=== PATIENT | male | born 1985 | race Two or more races ===

== ENCOUNTER 2025-04-10 07:48 | Emergency (ER) | payer OTHER ==
[~2025-04-10] VITALS: Ht 160 cm; Wt 83.9 kg
[2025-04-10 08:03] VITALS: BP 140/92; O2SAT 100
[2025-04-10] MEDS ORDERED: KETOROLAC TROMETHAMINE 30 MG VIAL IM STA (08:13)
[2025-04-10] MEDS ORDERED: ORPHENADRINE CITRATE 30 MG/ML AMPUL IM STA (08:13)
[2025-04-10] MEDS ORDERED: DEXAMETHASONE SODIUM PHOSPHATE 4 MG/ML VIAL IM STA (08:13)
[2025-04-10] MEDS ORDERED: NAPROXEN500 MG PO (12:08)
[2025-04-10] MEDS ORDERED: NORFLEX100MG PO (12:08)
== END 2025-04-10 13:49 | disposition home or self-care (01) ==
LOC: ER 07:49
DX: M54.59 Other low back pain (principal); M51.369 Other intervertebral disc degeneration, lumbar region without mention of lumbar back pain or lower extremity pain